=== PATIENT | male | born 1980 | race Caucasian/White ===

== ENCOUNTER 2016-04-03 16:43 | Emergency (ER) | payer OTHER ==
[~2016-04-03] VITALS: Ht 188 cm; Wt 156.5 kg
[~2016-04-03 16:43] MED LIST: ANDROGEL1.25 GM; CABERGOLINE 0.0.5 M1 PO; FISH OIL 1,001000 M2; NASACORT10.8 ML; NORFLEX100 MG PO; PERCOCET 5-3251 EACH PO; PREDNISONE 10 M10 MG PO; VITAMIN D2000 UNIT; ZYRTEC10 MG
[2016-04-03] MEDS ORDERED: FLEXERIL PO (18:02)
[2016-04-03] MEDS ORDERED: IBUPROFEN 600600 M1 PO (18:02)
[2016-04-03] MEDS ORDERED: NORCO 5-325 TA1 EACH PO (18:28)
[2016-04-03 18:37] VITALS: BP 138/102
== END 2016-04-03 18:38 | disposition home or self-care (01) ==
LOC: ER 16:43
DX: S39.012A Strain of muscle, fascia and tendon of lower back, initial encounter (principal); X58.XXXA Exposure to other specified factors, initial encounter; Y93.89 Activity, other specified; Y92.89 Other specified places as the place of occurrence of the external cause; Y99.8 Other external cause status

== ENCOUNTER 2016-09-07 20:49 | Emergency (ER) | payer BC ==
[~2016-09-07] VITALS: Ht 185.4 cm; Wt 156.9 kg
[~2016-09-07 20:49] MED LIST changes: +FLEXERIL PO; +IBUPROFEN 600600 M1 PO; +NORCO 5-325 TA1 EACH PO
[2016-09-07] MEDS ORDERED: [UNRECOGNIZED DRUG - REMARK] PO (21:25)
[2016-09-07] MEDS ORDERED: PERCOCET 5-3251 EACH PO (22:36)
[2016-09-07] MEDS ORDERED: PREDNISONE 20 M20 MG PO (22:36)
[2016-09-07] MEDS ORDERED: ROBAXIN500 MG PO (22:37)
[2016-09-07 23:15] VITALS: BP 128/76
== END 2016-09-07 23:16 | disposition home or self-care (01) ==
LOC: ER 20:49
DX: S39.012A Strain of muscle, fascia and tendon of lower back, initial encounter (principal); Z86.011 Personal history of benign neoplasm of the brain; X50.9XXA Other and unspecified overexertion or strenuous movements or postures, initial encounter; Y93.89 Activity, other specified; Y92.89 Other specified places as the place of occurrence of the external cause; Y99.8 Other external cause status